=== PATIENT | male | born 1975 | race Two or more races ===

== ENCOUNTER 2022-09-25 09:17 | Observation (INO) ==
--- NOTE | 2022-09-25 09:50 | Emergency Department Note ---
HPI General Chief complaint: Skin/Abscess/Rash Stated complaint: Open stitches Time Seen by Provider: 09/25/22 09:41 Source: patient and family Mode of arrival: wheelchair Limitations: no limitations History of Present Illness HPI Narrative: Narrative: Patient is a 47-year-old male who presents to the emergency department due to concern for open surgical wound. He states that he had surgery performed approximately 3 weeks ago in [place]. He states that it was with a physician and Dr. Newberry and that they were looking to potentially do a kidney transplant, but were unable to. He states that this morning he sneezed, and sutures came out at that time. He noticed something purple coming out of the wound, so p ushed it back in. He states that he decided to come to the emergency department at that point. He does endorse some pain in the belly. He denies any other symptoms at this time. Related Data Home Medications Medication Instructions Recorded Confirmed acetaminophen 500 mg capsule See Rx Instructions PO PRN 11/30/19 09/25/22 ascorbic acid (vitamin C) 1,000 mg 1 g PO QAM 02/27/21 09/25/22 tablet cholecalciferol (vitamin D3) 25 25 mcg PO QDAY 02/27/21 09/25/22 mcg (1,000 unit) capsule multivit,calc,mins-folic 240 1 tab PO QDAY 02/27/21 09/25/22 mcg-vit K1 30 mcg-lycopene 300 mcg tablet (One-A-Day Men's Complete) zinc gluconate 100 mg tablet 100 mg PO ONCE 02/27/21 09/25/22 Allergies Allergy/AdvReac Type Severity Reaction Status Date / Time No Known Drug Allergies Allergy Verified 07/11/22 09:29 Review of Systems ROS ROS Narrative: Narrative: Constitutional: Denies fever or weakness Cardiovascular: Denies chest pain or edema Respiratory: Denies shortness of breath Gastrointestinal: Reports abdominal pain; Denies nausea, vomiting, diarrhea or constipation Musculoskeletal: Denies back pain or myalgia Integumentary: Denies rash or lesions Neurological: Denies headache, weakness or confusion ON LICENSE OF [facility] Narrative Patient History Narrative: Narrative: Medical/Surgical/Family History All Active Problems (Updated 09/27/22 @ 08:00 by Goran Rodríguez MD) Abdominal wound dehiscence (Acute) Postoperative ileus (Acute) Abdominal wall dehiscence (Acute) Refused influenza vaccine (Acute) Close exposure to COVID-19 virus (Acute) History of ankle surgery (Chronic ~04/2007) Gout (Chronic ~11/2015) Sleep apnea (Chronic) Daytime sleepiness (Chronic) Medical History (Updated 09/27/22 @ 08:00 by Goran Rodríguez MD) Daytime sleepiness Gout (~11/2015) Sleep apnea Using CPAP since 2000 Surgical History History of ankle surgery (~04/2007) Family History Mother Arthritis Diabetes Father Arthritis Diabetes Grandmother Cancer Paternal Diabetes Maternal & Paternal Grandfather Heart attack Maternal & Paternal Diabetes Maternal & Paternal Social History Smoking Status: Never smoker Alcohol Intake Frequency: does not drink Substance Use: does not use Exam Narrative Narrative: Narrative: General Limitations: no limitations General appearance: Present alert and in no apparent distress; Absent anxious, appears intoxicated or sleepy Head Head: Present atraumatic and normocephalic Eye Eye: Present EOMI; Absent scleral icterus or nystagmus ENT ENT: Present mucous membranes moist; Absent nasal congestion Neck Neck: Present full ROM and trachea midline Chest Chest: Present normal inspection and symmetric chest wall rise Respiratory Respiratory: Present normal lung sounds bilaterally; Absent respiratory dis tress, rales/crackles, wheezes, stridor or accessory muscle use Cardiovascular Cardiovascular: Present regular rate, normal rhythm and normal heart sounds Adbominal Abdominal: Present soft, tenderness and normal bowel sounds; Absent distention, guarding, rebound or rigidity Extremities Extremities: Present normal inspection and full ROM Back Back: Present normal inspection and full ROM Neurological Neurological: Present alert and oriented X3 Psychiatric Psychiatric: Present normal affect and normal mood Skin Skin: Present warm (WNL), dry and normal color Course Vital Signs Vital signs: Vital Signs Temperature 97.0 F 09/25/22 09:23 Pulse Rate 61 09/25/22 09:23 Respiratory Rate 16 09/25/22 09:23 Blood Pressure 140/120 09/25/22 09:23 Pulse Oximetry (%) 99 09/25/22 09:23 Oxygen Delivery Method Room Air 09/25/22 09:23 Temperature 98.2 F 09/27/22 07:30 Pulse Rate 68 09/27/22 07:30 Respiratory Rate 16 09/27/22 07:30 Blood Pressure 129/89 09/27/22 07:30 Pulse Oximetry (%) 97 09/27/22 07:30 Oxygen Delivery Method Room Air 09/27/22 07:30 Oxygen Flow Rate (L/min) 0 09/25/22 13:12 MDM MDM Narrative Medical decision making narrative: Narrative: Patient is a 47-year-old male who presents to the emergency department due to open abdominal wound. I did examine the wound which appeared to be deep, but did not probe further prior to talking with Dr. Newberry. I spoke to Dr. Newberry and he did recommend that I probe deeper to confirm what patient stated about a "purple thing" protruding from the wound. I did probe deeper and found that the wound did cross through fascia into the abdomen, and was able to see peristalsing intestine. Dr. Newberry did recommend he speak to our surgical team here. I spoke to Dr. Arreola who agreed to see and evaluate patient he spoke to the surgical team who presented to the emergency department and placed Ioban over the wound after cleaning the skin. Dr. Arreola states that he plans to take patient to the OR and to admit patient. Lab Data 09/26/22 05:39 09/26/22 05:39 Labs: Lab Results 09/25/22 09/25/22 09/25/22 Range/Units 10:00 10:00 10:00 WBC 5.1 (4.5-11.0) K/mcL RBC 4.89 (4.63-6.08) M/mcL Hgb 13.4 L (13.7-17.5) g/dL Hct 41.3 (40.1-51.0) % POC Hct (41-55) MCV 84.5 (80.0-100.0) fL MCH 27.4 (26.0-34.0) pg MCHC 32.4 (31.0-36.0) g/dL RDW 14.6 H (11.5-14.5) % Plt Count 234 (140-440) K/mcL MPV 12.0 (8.8-12.5) fL Immature Gran % (Auto) 0.2 (0.0-0.5) % Neut % (Auto) 59.7 (38.0-78.0) % Lymph % (Auto) 27.4 (15.5-49.0) % [place] % (Auto) 9.6 (1.0-12.0) % Eos % (Auto) 2.5 (0.0-7.0) % Baso % (Auto) 0.6 (0.0-2.0) % Lymph # (Auto) 1.40 L (1.50-4.80) K/mcL [place] # (Auto) 0.49 (0.10-0.90) K/mcL Eos # (Auto) 0.13 (0.00-0.70) K/mcL Baso # (Auto) 0.03 (0.00-0.30) K/mcL Immature Gran # 0.01 (0.00-0.05) K/mcl Absolute Neutrophils 3.05 (1.80-8.00) K/mcL PT 13.8 (11.9-14.5) sec INR 1.0 (0.9-1.1) APTT 28.2 (20.0-37.0) sec POC Sodium (133-145) Sodium 140 (133-145) mmol/L POC Potassium (3.3-5.1) Potassium 4.2 (3.3-5.1) mmol/L POC Chloride (96-108) Chloride 104 (96-108) mmol/L Carbon Dioxide 25 (22-30) mmol/L POC Total CO2 (22-30) Anion Gap 11.0 (8.0-16.0) POC BUN (6-20) BUN 14 (6-20) mg/dL Creatinine 1.1 (0.7-1.2) mg/dL POC Creatinine (0.6-1.2) GFR Calculation 79 Glucose 85 (70-105) mg/dL POC Glucose (70-105) Calcium 9.3 (8.6-10.4) mg/dL POC WB Ioniz Calcium (1.16-1.32) Total Bilirubin 0.3 (0.1-1.0) mg/dL AST 26 (<40) U/L ALT 34 (<40) U/L Alkaline Phosphatase 71 (39-117) U/L Total Protein 7.1 (5.9-8.4) gm/dL Albumin 4.2 (3.2-5.2) gm/dL Globulin 2.9 (2.2-3.7) gm/dL Albumin/Globulin Ratio 1.4 (1.0-2.3) Urine Color Urine Appearance (Clear) Urine pH (5.0-9.0) Ur Specific Leonidas (1.000-1.035) Urine Protein (Negative) mg/dL Urine Glucose (UA) (Negative) mg/dL Urine Ketones (Negative) mg/dL Urine Occult Blood (Negative) mg/dL Urine Nitrate (Negative) Urine Bilirubin (Negative) mg/dL Urine Urobilinogen mg/dL Ur Leukocyte Esterase (Negative) /uL Ur Culture Indicated? 09/25/22 09/25/22 Range/Units 10:03 11:00 WBC (4.5-11.0) K/mcL RBC (4.63-6.08) M/mcL Hgb (13.7-17.5) g/dL Hct (40.1-51.0) % POC Hct 42.0 (41-55) MCV (80.0-100.0) fL MCH (26.0-34.0) pg MCHC (31.0-36.0) g/dL RDW (11.5-14.5) % Plt Count (140-440) K/mcL MPV (8.8-12.5) fL Immature Gran % (Auto) (0.0-0.5) % Neut % (Auto) (38.0-78.0) % Lymph % (Auto) (15.5-49.0) % [place] % (Auto) (1.0-12.0) % Eos % (Auto) (0.0-7.0) % Baso % (Auto) (0.0-2.0) % Lymph # (Auto) (1.50-4.80) K/mcL [place] # (Auto) (0.10-0.90) K/mcL Eos # (Auto) (0.00-0.70) K/mcL Baso # (Auto) (0.00-0.30) K/mcL Immature Gran # (0.00-0.05) K/mcl Absolute Neutrophils (1.80-8.00) K/mcL PT (11.9-14.5) sec INR (0.9-1.1) APTT (20.0-37.0) sec POC Sodium 140 (133-145) Sodium (133-145) mmol/L POC Potassium 4.2 (3.3-5.1) Potassium (3.3-5.1) mmol/L POC Chloride 103 (96-108) Chloride (96-108) mmol/L Carbon Dioxide (22-30) mmol/L POC Total CO2 27.0 (22-30) Anion Gap (8.0-16.0) POC BUN 14 (6-20) BUN (6-20) mg/dL Creatinine (0.7-1.2) mg/dL POC Creatinine 1.2 (0.6-1.2) GFR Calculation Glucose (70-105) mg/dL POC Glucose 92 (70-105) Calcium (8.6-10.4) mg/dL POC WB Ioniz Calcium 1.13 L (1.16-1.32) Total Bilirubin (0.1-1.0) mg/dL AST (<40) U/L ALT (<40) U/L Alkaline Phosphatase (39-117) U/L Total Protein (5.9-8.4) gm/dL Albumin (3.2-5.2) gm/dL Globulin (2.2-3.7) gm/dL Albumin/Globulin Ratio (1.0-2.3) Urine Color Straw Urine Appearance Clear (Clear) Urine pH 7.0 (5.0-9.0) Ur Specific Leonidas 1.003 (1.000-1.035) Urine Protein Negative (Negative) mg/dL Urine Glucose (UA) Negative (Negative) mg/dL Urine Ketones Negative (Negative) mg/dL Urine Occult Blood Negative (Negative) mg/dL Urine Nitrate Negative (Negative) Urine Bilirubin Negative (Negative) mg/dL Urine Urobilinogen Negative mg/dL Ur Leukocyte Esterase Negative (Negative) /uL Ur Culture Indicated? No Discharge Plan Patient/Caregiver Discharge Instructions Pt seen by DIGITAL MUSIC INSTRUCTOR/PA only: No Clinical Impression: Abdominal wound dehiscence Patient Disposition: Xfer As Outpt/Obs ([facility]) Discharge Date/Time: 09/25/22 11:09
[2022-09-25 10:06] LABS: POC Calcium, Ionized 1.13 (1.16-1.32); POC Creatinine 1.2 (0.6-1.2); POC Potassium 4.2 (3.3-5.1)
[2022-09-25] MEDS ORDERED: cefTRIAXone 1 GM VIAL IV ONE (10:38)
[2022-09-25] MEDS ORDERED: VANCOMYCIN 1,000 MG in 0.9 % SODIUM CHLORIDE 250 ML IV ONE (10:39)
[2022-09-25] MEDS ORDERED: 0.9 % SODIUM CHLORIDE 250 ML ONE (10:44)
--- NOTE | 2022-09-25 10:59 | General Surg History&Physical ---
HPI History of Present Illness Patient information: Note initiated : 09/25/22 at 10:53 am Service Date, if different from initiated Date: [] Patient: Oj Buckner a 47 y/o M admitted on for Repair Abdominal Dehiscence. Chief Complaint: [] Chief complaint: Abdominal wall dehiscence History of present illness: Mr. Buckner is a 47 year old M who presents to the emergency room with an open abdominal wall incision. Patient states that he was going to be a donor for kidney transplant for his sister. At the time of induction of anesthesia he developed unstable vital signs and could not tolerate having his peritoneal cavity insufflated. They tried reportedly multiple times but his vitals would not stabilize. The procedure was aborted and be wound was closed. This procedure was performed on 02 September 2022. The patient states that he was doing fine until he sneezed earlier this morning and noted that his incision popped open. They were able to see bowel through the open incision. He is seen in the emergency room where he has a limited open incision with visible small bowel but no evidence of incarceration or herniation through the open incision. Patient is counseled for general anesthesia with closure of the fascia with permanent suture. Review of Systems All systems: reviewed and no additional remarkable complaints except as stated PFSH PFSH All Active Problems (Updated 09/25/22 @ 10:58 by Leslie Arreola MD) Abdominal wall dehiscence (Acute) Refused influenza vaccine (Acute) Close exposure to COVID-19 virus (Acute) History of ankle surgery (Chronic ~04/2007) Gout (Chronic ~11/2015) Sleep apnea (Chronic) Daytime sleepiness (Chronic) Medical History (Updated 09/25/22 @ 10:58 by Leslie Arreola MD) Daytime sleepiness Gout (~11/2015) Sleep apnea Using CPAP since 2000 Surgical History History of ankle surgery (~04/2007) Family History Mother Arthritis Diabetes Father Arthritis Diabetes Grandmother Cancer Paternal Diabetes Maternal & Paternal Grandfather Heart attack Maternal & Paternal Diabetes Maternal & Paternal Social History marital status: occupational status: employed occupation: [employer] smoking status: Never smoker alcohol intake frequency: does not drink substance use type: does not use MEDS/ALLERGIES Home Medications and Allergies Home Medications Medication Instructions Recorded Confirmed Type acetaminophen 500 mg capsule See Rx Instructions PO PRN 11/30/19 02/27/21 History ascorbic acid (vitamin C) 1,000 mg 1 g PO Q6H 02/27/21 02/27/21 History tablet cholecalciferol (vitamin D3) 25 25 mcg PO QDAY 02/27/21 02/27/21 History mcg (1,000 unit) capsule multivit,calc,mins-folic 240 1 tab PO QDAY 02/27/21 02/27/21 History mcg-vit K1 30 mcg-lycopene 300 mcg tablet (One-A-Day Men's Complete) zinc gluconate 100 mg tablet 100 mg PO ONCE 02/27/21 02/27/21 History Allergies Allergy/AdvReac Type Severity Reaction Status Date / Time No Known Drug Allergies Allergy Verified 07/11/22 09:29 Physical Examination Vital Signs Vital signs: Temp Pulse Resp BP Pulse Ox O2 Del Method 97.0 F 61 16 140/120 99 Room Air 09/25/22 09:23 09/25/22 09:23 09/25/22 09:23 09/25/22 09:23 09/25/22 09:23 09/25/22 09:23 General physical appearance General physical exam: well developed, well nourished, no distress and no pain Eyes Eye exam: PERRL and normal ocular movement ENT ENT exam: normal mucosa Head Head exam IM: Present atraumatic, normal inspection and normocephalic Neck Neck exam: no masses, no bruits, trachea midline, no lymphadenopathy and no venous distension Cardiovascular Cardiovascular exam IM: Present normal rate and rhythm, RRR, +S1 and +S2; Absent JVD Respiratory Respiratory exam: normal expansion, normal respiratory effort and clear to auscultation Abdomen Abdomen: Present soft, non tender and surgical scars (Open supraumbilical midline incision with exposed small bowel; no evidence of purulence) Integumentary Integumentary: Present no rash, no growths and no abnormal pigmentation Neurologic Neurologic: Present normal coordination and normal sensation Musculoskeletal Musculoskeletal: Present normal gait and normal posture Psychiatric Psychiatric: Present oriented to time, oriented to person, oriented to place, speech is normal and memory intact Results Labs 09/25/22 10:00 09/25/22 10:00 Labs: Abnormal lab results 09/25/22 Range/Units 10:03 POC WB Ioniz Calcium 1.13 L (1.16-1.32) All other labs normal. A/P Assessment and plan (1) Abdominal wall dehiscence: Status: Acute Plan Patient is counseled for closure of the dehiscence primarily with permanent suture. This will be carried out later today Sepsis Sepsis Identified: No Time Spent With Patient Time: Total time spent is greater than 50% in coordination of care (as documented) at patient's floor/unit and/or counseling patient:
[2022-09-25] MEDS ORDERED: ONDANSETRON 4 MG/2 ML VIAL ONE (11:25)
[2022-09-25] MEDS ORDERED: DEXAMETHASONE 10 MG/ML VIAL ONE (11:25)
[2022-09-25] MEDS ORDERED: KETAMINE 50 MG/ML Syringe (ANEST) IV ONE (11:25)
[2022-09-25] MEDS ORDERED: SUGAMMADEX SODIUM 200 MG/2 ML VIAL IV ONE (11:25)
[2022-09-25] MEDS ORDERED: LIDOCAINE HCL/PF 100 MG/5 ML SYRINGE IV ONE (11:25)
[2022-09-25] MEDS ORDERED: PROPOFOL 200 MG/20 ML VIAL IV ONE (11:25)
[2022-09-25] MEDS ORDERED: fentaNYL 100 MCG/2 ML VIAL IV ONE (11:25)
[2022-09-25] MEDS ORDERED: MAGNESIUM SULFATE 2 GM/50 ML BAG IV ONE (11:25)
[2022-09-25] MEDS ORDERED: ROCURONIUM 10 MG/ML ML IV ONE (11:25)
[2022-09-25] MEDS ORDERED: ePHEDrine 50 MG/5 ML SYRINGE (ANEST) IV ONE (11:25)
[2022-09-25 11:34] LABS: Basophils # (Auto) 0.03 K/mcL (0.00-0.30); Basophils % (Auto) 0.6 % (0.0-2.0); Eosinophils # (Auto) 0.13 K/mcL (0.00-0.70); Eosinophils % (Auto) 2.5 % (0.0-7.0); Hematocrit 41.3 % (40.1-51.0); Hemoglobin 13.4 g/dL (13.7-17.5); Lymphocytes % (Auto) 27.4 % (15.5-49.0); Mean Cell Volume 84.5 fL (80.0-100.0); Mean Corpuscular HGB Conc 32.4 g/dL (31.0-36.0); Monocytes # (Auto) 0.49 K/mcL (0.10-0.90); Monocytes % (Auto) 9.6 % (1.0-12.0); Neutrophils % (Auto) 59.7 % (38.0-78.0); Platelet Count 234 K/mcL (140-440); RBC 4.89 M/mcL (4.63-6.08); Red Cell Distribution Width 14.6 % (11.5-14.5); WBC 5.1 K/mcL (4.5-11.0)
--- NOTE | 2022-09-25 11:34 | XRay Report ---
HISTORY: Preop for abdominal surgery FINDINGS: The lungs are clear normally expanded. The heart size, pulmonary vasculature, mediastinum, camryn, pleura and bones are normal. There has been no significant change since the chest CT done on 07/21/22. IMPRESSION: Normal chest. Interpreted and Authenticated by: Toni Madrid 09/25/22
[2022-09-25 11:54] LABS: Partial Thromboplastin Time 28.2 sec (20.0-37.0); Prothrombin Time 13.8 sec (11.9-14.5)
[2022-09-25] MEDS ORDERED: ONDANSETRON 4 MG/2 ML VIAL IV PRN ×2 (11:56→12:36)
[2022-09-25] MEDS ORDERED: BENZOCAINE/MENTHOL 1 LOZENGE PO PRN (11:56)
[2022-09-25] MEDS ORDERED: MEPERIDINE 25 MG/ML VIAL IV PRN (11:56)
[2022-09-25] MEDS ORDERED: diphenhydrAMINE 50 MG/ML VIAL IV PRN (11:56)
[2022-09-25] MEDS ORDERED: ACETAMINOPHEN 1,000 MG/100 ML BAG IV ONE (11:56)
[2022-09-25] MEDS ORDERED: fentaNYL 100 MCG/2 ML VIAL IV PRN (11:56)
[2022-09-25] MEDS ORDERED: PROMETHAZINE 25 MG/ML VIAL IV PRN (11:56)
[2022-09-25] MEDS ORDERED: LACTATED RINGERS 250 ML IV PRN (11:56)
[2022-09-25] MEDS ORDERED: METHOCARBAMOL 1,000 MG/10 ML VIAL IV PRN (11:56)
[2022-09-25] MEDS ORDERED: IPRATROPIUM/ALBUTEROL 3 ML AMPUL.NEB NEB PRN (11:56)
[2022-09-25] MEDS ORDERED: NALOXONE HCL 0.4 MG/ML VIAL IV PRN (11:56)
[2022-09-25 11:57] LABS: ALT/SGPT 34 U/L (<40); AST/SGOT 26 U/L (<40); Albumin 4.2 gm/dL (3.2-5.2); Albumin/Globulin Ratio 1.4 (1.0-2.3); Alkaline Phosphatase 71 U/L (39-117); Bilirubin,Total 0.3 mg/dL (0.1-1.0); Blood Urea Nitrogen 14 mg/dL (6-20); Calcium 9.3 mg/dL (8.6-10.4); Carbon Dioxide 25 mmol/L (22-30); Chloride 104 mmol/L (96-108); Globulin 2.9 gm/dL (2.2-3.7); Glomerular Filtration Rate 79; Glucose 85 mg/dL (70-105)
[2022-09-25] MEDS ORDERED: LACTATED RINGERS 1,000 ML IV SCH (12:00)
--- NOTE | 2022-09-25 12:36 | Brief Operative Note ---
Brief Operative Note Date of procedure: 09/25/22 Pre-op diagnosis: abdominal wound fascial dehiscence Post-op diagnosis: other (abdominal wound fascial dehiscence) Procedure: closure of abdominal wall dehiscence Grafts/Implants: No (fabrizio drain) Anesthesia: GETA Findings: total dehiscence of fascia of midline incision ;10 cm Complications: none Surgeon: Leslie Arreola Estimated blood loss (cc): 20 Specimens Removed/Pathology: none sent Condition: stable Disposition: PACU
[2022-09-25] MEDS ORDERED: VANCOMYCIN PER PHARMACY IV SCH (12:43)
[2022-09-25] MEDS ORDERED: cefTRIAXone 1 GM in DEXTROSE 5% IN WATER 50 ML IV SCH (12:45)
[2022-09-25 13:00] LABS: Appearance,Urine CLEAR (Clear); Bilirubin,Urine Negative (Negative); Color,Urine STRAW; Culture Indicated,Urine No; Glucose,Urine (UA) Negative (Negative); Ketones,Urine Negative (Negative); Leukocyte Esterase,Urine Negative /uL (Negative); Nitrate,Urine Negative (Negative); Protein,Urine Negative (Negative); Specific Gravity,Urine 1.003 (1.000-1.035); Urine Blood Negative (Negative); Urobilinogen,Urine Negative
[2022-09-25] MEDS ORDERED: VANCOMYCIN 500 MG in 0.9 % SODIUM CHLORIDE 100 ML IV ONE (13:00)
[2022-09-25] MEDS: 0.9 % SODIUM CHLORIDE 10 ML SYRINGE IV SCH ×2 (13:37→19:50)
[2022-09-25] MEDS: LACTATED RINGERS 1,000 ML IV SCH ×2 (13:40→22:40)
[2022-09-25] MEDS: HYDROmorphone 1 MG/ML SYRINGE IV PRN ×3 (13:54→18:27)
[2022-09-25] MEDS: ACETAMINOPHEN 1,000 MG/100 ML BAG IV SCH (19:49)
[2022-09-25] MEDS: DOCUSATE SODIUM 100 MG CAPSULE PO SCH (21:27)
[2022-09-25] MEDS: SENNOSIDES 1 TABLET PO SCH (21:27)
[2022-09-25] MEDS: VANCOMYCIN 1,500 MG in 0.9 % SODIUM CHLORIDE 500 ML IV SCH (23:32)
[2022-09-26] MEDS: ACETAMINOPHEN 1,000 MG/100 ML BAG IV SCH ×4 (01:43→19:01)
[2022-09-26] MEDS: HYDROmorphone 1 MG/ML SYRINGE IV PRN ×3 (05:09→23:20)
[2022-09-26] MEDS: 0.9 % SODIUM CHLORIDE 10 ML SYRINGE IV SCH ×4 (06:07→21:26)
[2022-09-26 06:35] LABS: Basophils # (Auto) 0.02 K/mcL (0.00-0.30); Basophils % (Auto) 0.1 % (0.0-2.0); Eosinophils # (Auto) 0 K/mcL (0.00-0.70); Eosinophils % (Auto) 0 % (0.0-7.0); Hematocrit 38.5 % (40.1-51.0); Hemoglobin 12.4 g/dL (13.7-17.5); Lymphocytes # (Auto) 0.81 K/mcL (1.50-4.80); Lymphocytes % (Auto) 5.7 % (15.5-49.0); Mean Corpuscular HGB Conc 32.2 g/dL (31.0-36.0); Mean Platelet Volume 11.9 fL (8.8-12.5); Monocytes # (Auto) 0.69 K/mcL (0.10-0.90); Monocytes % (Auto) 4.8 % (1.0-12.0); Neutrophils % (Auto) 88.9 % (38.0-78.0); Platelet Count 250 K/mcL (140-440); RBC 4.53 M/mcL (4.63-6.08); Red Cell Distribution Width 14.8 % (11.5-14.5); WBC 14.2 K/mcL (4.5-11.0)
[2022-09-26 07:07] LABS: ALT/SGPT 28 U/L (<40); AST/SGOT 20 U/L (<40); Albumin 3.7 gm/dL (3.2-5.2); Albumin/Globulin Ratio 1.4 (1.0-2.3); Alkaline Phosphatase 64 U/L (39-117); Bilirubin,Direct < 0.2 mg/dL (0-0.3); Bilirubin,Total 0.5 mg/dL (0.1-1.0); Blood Urea Nitrogen 15 mg/dL (6-20); Calcium 9.1 mg/dL (8.6-10.4); Carbon Dioxide 23 mmol/L (22-30); Chloride 106 mmol/L (96-108); Globulin 2.6 gm/dL (2.2-3.7); Glomerular Filtration Rate 89; Glucose 127 mg/dL (70-105); Lactate Dehydrogenase 136 U/L (135-225); Phosphorous 3.5 mg/dL (2.5-4.5); Triglycerides 112 mg/dL (<150); Uric Acid 6.8 mg/dL (2.5-8.0)
[2022-09-26] MEDS: cefTRIAXone 1 GM VIAL IV SCH (07:58)
[2022-09-26] MEDS: DOCUSATE SODIUM 100 MG CAPSULE PO SCH ×2 (07:58→21:26)
[2022-09-26] MEDS: VANCOMYCIN 1,500 MG in 0.9 % SODIUM CHLORIDE 500 ML IV SCH ×2 (07:58→21:25)
[2022-09-26] MEDS: LACTATED RINGERS 1,000 ML IV SCH (07:59)
--- NOTE | 2022-09-26 12:08 | General Surgery Progress Note ---
SUBJECTIVE Subjective Patient information: Note initiated : 09/26/22 at 12:04 pm Service Date, if different from initiated Date: [] Patient: Oj Buckner 47 y/o M admitted on 09/25/22 for Repair Abdominal Wound Dehiscence. Chief Complaint: [] Principal diagnosis: Abdominal incisional dehiscence Interval history: Patient feels much better. His pain is controlled. He is passing flatus. He denies nausea. Constitutional Vitals: Vital Signs Temp Pulse Resp BP Pulse Ox O2 Del Method O2 Flow Rate 98.3 F 84 16 123/80 92 Room Air 0 09/26/22 11:52 09/26/22 11:52 09/26/22 11:52 09/26/22 11:52 09/26/22 11:53 09/26/22 11:53 09/25/22 13:12 Period Temp Pulse Resp BP Sys/Anton Pulse Ox O2 Del Method O2 Flow Rate Last 24 Hr 96.8 F-98.8 F 71-95 11-20 111-140/66-103 89-100 CPAP-Room Air 0-5 Intake and Output 09/26/22 09/26/22 09/26/22 03:59 11:59 19:59 Intake Total 1600 2400 Output Total 625 Balance 1600 1775 Weight 246 lb 4.8 oz Intake & Output: Intake & Output 09/26/22 09/26/22 09/26/22 03:59 11:59 19:59 Intake Total 1600 2400 Output Total 625 Balance 1600 1775 Weight 246 lb 4.8 oz Intake: IV 1600 1600 Lactated Ringers 1,000 ml @ 265 633 3164 mls/hr IV .Q10H KEVIN Rx#: [id number] Vancomycin 1,500 mg In Sodium 500 500 Chloride 0.9% 500 ml @ 333.3 mls/hr IV Q12H KEVIN Rx#: [id number] Oral 800 Output: Drainage 25 SHERRY Drain 25 Void Amount 600 Other: Urine Appearance Clear Urine Color Yellow Respiratory Respiratory exam: Present normal respiratory exam and CTAB Cardiovascular Cardiovascular exam: Present normal rate and rhythm, RRR, +S1 and +S2; Absent gallop GI/Abdominal GI/Abdominal exam: Present normal bowel sounds and soft; Absent distended Additional comments: Midline incision looks good without erythema or induration SHERRY with serosanguineous drainage Extremities Exam Extremities exam: Present normal inspection and neurovascular intact Neurological Exam Neurological exam: Present alert and oriented X3; Absent motor sensory deficit Psychiatric Psychiatric exam: Present normal affect and normal mood A/P Assessment and plan (1) Abdominal wall dehiscence: Status: Acute (2) Postoperative ileus: Status: Acute Plan Saline lock IV Check CBC in the morning Probable discharge tomorrow Time Spent With Patient Time: Total time spent is greater than 50% in coordination of care (as documented) at patient's floor/unit and/or counseling patient:
--- NOTE | 2022-09-26 14:46 | EKG ---
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 Measurements Intervals [place] Rate: 59 P: 55 DC: 170 QRS: 60 QRSD: 98 T: 55 QT: 412 QTc: 409 Interpretive Statements Sinus rhythm Electronically Signed On 09-26-2022 14:45:51 PDT by Robert Madrid M.D. /[id number]/[id number]
[2022-09-26] MEDS: SENNOSIDES 1 TABLET PO SCH (21:26)
[2022-09-27] MEDS: ACETAMINOPHEN 1,000 MG/100 ML BAG IV SCH ×3 (01:17→13:16)
[2022-09-27] MEDS: 0.9 % SODIUM CHLORIDE 10 ML SYRINGE IV SCH ×3 (01:18→13:17)
[2022-09-27 08:39] LABS: Basophils # (Auto) 0.04 K/mcL (0.00-0.30); Basophils % (Auto) 0.4 % (0.0-2.0); Eosinophils # (Auto) 0.06 K/mcL (0.00-0.70); Eosinophils % (Auto) 0.6 % (0.0-7.0); Hematocrit 35.9 % (40.1-51.0); Hemoglobin 11.5 g/dL (13.7-17.5); Lymphocytes # (Auto) 1.82 K/mcL (1.50-4.80); Lymphocytes % (Auto) 18.1 % (15.5-49.0); Mean Cell Volume 84.7 fL (80.0-100.0); Mean Platelet Volume 11.6 fL (8.8-12.5); Monocytes # (Auto) 0.75 K/mcL (0.10-0.90); Monocytes % (Auto) 7.5 % (1.0-12.0); Neutrophils % (Auto) 73.1 % (38.0-78.0); Platelet Count 216 K/mcL (140-440); RBC 4.24 M/mcL (4.63-6.08); Red Cell Distribution Width 15.1 % (11.5-14.5)
[2022-09-27] MEDS: cefTRIAXone 1 GM VIAL IV SCH (09:06)
[2022-09-27] MEDS: DOCUSATE SODIUM 100 MG CAPSULE PO SCH (09:06)
[2022-09-27] MEDS: VANCOMYCIN 1,500 MG in 0.9 % SODIUM CHLORIDE 500 ML IV SCH (10:08)
--- NOTE | 2022-09-27 13:05 | Discharge Summary ---
Discharge Provider Provider IMPORTANT FOLLOW-UP INFORMATION FOR PCP: Patient information: Note initiated : 09/27/22 at 1:02 pm Service Date, if different from initiated Date: [] Patient: Oj Buckner 47 y/o M admitted on 09/25/22 for Repair Abdominal Wound Dehiscence. Chief Complaint: [] Date of admission: 09/25/22 13:25 Discharge date: 09/27/22 Primary care physician: Derick Alfaro PA-C Admitting clinician: Leslie Arreola Attending physician on admission: Leslie Arreola Consults: 09/26/22 07:28 Consult to Physician [CONS] Routine Comment: Consulting Provider: Leslie Arreola Reason For Exam: Physician to Consult Attending physician on discharge: Leslie Arreola Discharging clinician: Leslie Arreola COURSE Hospital Course Hospital course: 47-year-old male who presents to the emergency room with dehiscence of a midline abdominal incision with exposed small bowel. The patient had an attempted laparoscopic nephrectomy for donor kidney for his sister on 02 September. The procedure was aborted because of his unstable vital signs. He had closure of the wound and had reportedly done well. He states that about 3 days postprocedure he developed some abdominal pain and swelling but was told that that was normal. He was explored on the day of admission and was found to have total disruption of 11 cm midline incision. There was a single strand of 0 Prolene that was fractured and there were a few strands of 3-0 Monocryl. The subcutaneous area was totally covered with a glistening surface suggesting the bowel had been in the subcutaneous tissue for quite some time and the hernia was developing. There was no evidence of purulence. The area was irrigated and closed primarily with interrupted [id number] sutures of #1 Prolene. The subcutaneous tissue was drain and closed in 2 layers with 0 Monocryl. Patient has done well. He had elevation of white blood count to 14,000 on yesterday but it is now down to 10,000. He has been clinically stable and is ready for discharge home. Discharge diagnosis: Total abdominal fascial dehiscence Reason for admission: Dehiscence of the abdominal incision Procedures: Wound exploration and closure of abdominal wall dehiscence Pertinent studies/significant findings: None Complications: None Time Spent with Patient Time attestation: Total time spent providing and/or coordinating discharge services: Time spent: Less than 30 minutes Physical Examination Vital Signs Vital signs: Temp Pulse Resp BP Pulse Ox O2 Del Method O2 Flow Rate 99.1 F H 74 16 137/86 97 Room Air 0 09/27/22 11:54 09/27/22 11:54 09/27/22 11:54 09/27/22 11:54 09/27/22 11:54 09/27/22 11:54 09/25/22 13:12 General physical appearance General physical exam: well developed, well nourished, no distress and no pain Eyes Eye exam: PERRL and normal ocular movement ENT ENT exam: normal mucosa Head Head exam IM: Present atraumatic, normal inspection and normocephalic Neck Neck exam: no masses, no bruits, trachea midline, no lymphadenopathy and no venous distension Cardiovascular Cardiovascular exam IM: Present normal rate and rhythm, RRR, +S1 and +S2; Absent JVD Respiratory Respiratory exam: normal expansion, normal respiratory effort and clear to auscultation Abdomen Abdomen: Present soft, non tender and surgical scars (Midline incision is healing uneventfully; SHERRY drain with serosanguineous drainage) Integumentary Integumentary: Present no rash, no growths and no abnormal pigmentation Neurologic Neurologic: Present normal coordination and normal sensation Musculoskeletal Musculoskeletal: Present normal gait and normal posture Psychiatric Psychiatric: Present oriented to time, oriented to person, oriented to place, speech is normal and memory intact Discharge Plan Patient/Caregiver Discharge Instructions Activity: increase activity as tolerated Diet: Regular Diet Prescriptions: New tramadol 50 mg tablet 50 mg PO Q6H PRN (Reason: Pain) Qty: 30 0RF levofloxacin [levofloxacin] 750 mg tablet 750 mg PO DAILY Qty: 10 0RF Continued acetaminophen 500 mg capsule See Rx Instructions PO PRN Rx Instructions: PO as needed; One-A-Day Men's Complete 240 mcg-30 mcg- 300 mcg tablet 1 tab PO QDAY cholecalciferol (vitamin D3) 25 mcg (1,000 unit) capsule 25 mcg PO QDAY ascorbic acid (vitamin C) 1,000 mg tablet 1 g PO QAM zinc gluconate 100 mg tablet 100 mg PO ONCE Prescription drug monitoring program results: PDMP not reviewed Follow Up Plan Follow up with: Leslie Arreola MD [Physician] - (Patient to call for appointment 2 weeks ) Derick Alfaro PA-C [Primary Care Provider] - Patient Disposition: Home, Self-Care Prognosis: Good Rehab Potential: Good I certify that the patient requires SNF services: No Overall status at discharge: patient is progressing back to baseline Discharge Orders: Discharge Order (Routine); Ordered 09/27/22 Ordered By: Leslie Arreola Pending Pending Pending: Resuscitation Status Resuscitate (Full Code) Diet Regular Diet Start ThuSep 26 1706 Ceftriaxone Sodium (Ceftriaxone 1 Gm Vial) 1 gm IV Q24H [facility] Last Admin: 09/27/22 09:06 Dose: 1 gm Documented By: Admin: 09/26/22 07:58 Dose: 1 gm Documented By: SHANNAN Docusate Sodium (Docusate Sodium 100 Mg Capsule) 100 mg PO BID [facility] Admin: 09/27/22 09:06 Dose: 100 mg Documented By: Admin: 09/26/22 21:26 Dose: 100 mg Documented By: Admin: 09/26/22 07:58 Dose: 100 mg Documented By: Admin: 09/25/22 21:27 Dose: 100 mg Documented By: DOROTHY Hydromorphone HCl (Hydromorphone 1 Mg/Ml Syringe) 1 mg IV Q2HP PRN; Protocol PRN Reason: Per Pain Protocol Last Admin: 09/26/22 23:20 Dose: 1 mg Documented By: Admin: 09/26/22 13:08 Dose: 1 mg Documented By: MARIA TERESA Co-signed By: KISHORE Admin: 09/26/22 05:09 Dose: 1 mg Documented By: Admin: 09/25/22 18:27 Dose: 1 mg Documented By: Admin: 09/25/22 15:49 Dose: 1 mg Documented By: Admin: 09/25/22 13:54 Dose: 1 mg Documented By: SHANNAN Acetaminophen (Ofirmev) 1,000 mg in 100 mls @ 200 mls/hr IV Q6H [facility] Infusion: 09/27/22 08:08 Dose: 0 mls/hr Documented By: Admin: 09/27/22 07:15 Dose: 200 mls/hr Documented By: Infusion: 09/27/22 02:15 Dose: 0 mls/hr Documented By: Admin: 09/27/22 01:17 Dose: 200 mls/hr Documented By: Infusion: 09/26/22 20:07 Dose: 0 mls/hr Documented By: Admin: 09/26/22 19:01 Dose: 200 mls/hr Documented By: Infusion: 09/26/22 13:43 Dose: 0 mls/hr Documented By: Admin: 09/26/22 13:06 Dose: 200 mls/hr Documented By: MARIA TERESA Co-signed By: KISHORE Infusion: 09/26/22 08:26 Dose: 0 mls/hr Documented By: Admin: 09/26/22 07:57 Dose: 200 mls/hr Documented By: Infusion: 09/26/22 02:13 Dose: 0 mls/hr Documented By: Admin: 09/26/22 01:43 Dose: 200 mls/hr Documented By: Infusion: 09/25/22 20:19 Dose: 0 mls/hr Documented By: Admin: 09/25/22 19:49 Dose: 200 mls/hr Documented By: DOROTHY Vancomycin HCl 1,500 mg/ (Sodium Chloride) 500 mls @ 333.3 mls/hr IV Q12H [facility] Last Infusion: 09/27/22 12:08 Dose: 0 mls/hr Documented By: Admin: 09/27/22 10:08 Dose: 333 mls/hr Documented By: Infusion: 09/26/22 23:19 Dose: 0 mls/hr Documented By: Admin: 09/26/22 21:25 Dose: 333.3 mls/hr Documented By: Infusion: 09/26/22 10:25 Dose: 0 mls/hr Documented By: Admin: 09/26/22 07:58 Dose: 333.3 mls/hr Documented By: Infusion: 09/26/22 01:20 Dose: 0 mls/hr Documented By: Admin: 09/25/22 23:32 Dose: 333.3 mls/hr Documented By: DOROTHY Senna (Sennosides 1 Tablet) 2 tab PO HS [facility] Last Admin: 09/26/22 21:26 Dose: 2 tab Documented By: Admin: 09/25/22 21:27 Dose: 2 tab Documented By: DOROTHY Sodium Chloride (0.9 % Sodium Chloride 10 Ml Syringe) 10 ml IV Q8 [facility] Last Admin: 09/27/22 06:57 Dose: 10 ml Documented By: Admin: 09/27/22 01:18 Dose: 10 ml Documented By: Admin: 09/26/22 21:26 Dose: 10 ml Documented By: Admin: 09/26/22 19:03 Dose: 10 ml Documented By: Admin: 09/26/22 12:22 Dose: Not Given Documented By: Admin: 09/26/22 06:07 Dose: Not Given Documented By: Admin: 09/25/22 19:50 Dose: 10 ml Documented By: Admin: 09/25/22 13:37 Dose: Not Given Documented By: SHANNAN Shift Summary 09/27/22 05:06 Shift Summary by Antonella Teague Patient is alert and oriented x4, has a midline incision and 1 SHERRY drain, was able to ambulate in the hallway once, Dilaudid x1, and scheduled Ofirmev worked well to control patient's pain. No N/V. Voided adequately(URINAL), and slept for the majority of this shift, patient used his CPAP. Initialized on 09/27/22 05:06 - END OF NOTE
--- NOTE | 2022-10-06 09:19 | Operative Note ---
DATE OF OPERATION: 09/25/2022 DATE OF PROCEDURE: 09/25/2022 PREOPERATIVE DIAGNOSIS: Acute abdominal wall fascial dehiscence. POSTOPERATIVE DIAGNOSIS: Acute abdominal wall fascial dehiscence. PROCEDURE: Exploration of the abdominal wall incision with primary closure of abdominal wall dehiscence. DESCRIPTION OF PROCEDURE: Under general anesthesia, the open wound was explored. The only tissue holding the bowel in the hernia sac was subcutaneous fat and skin. The skin was opened proximally and distally. There was a very large cavity, which contained small bowel and omentum, the cavity was re-epithelialized suggesting that it had been present for quite some time. There was no well-formed hernia sac. There was total dehiscence of the fascial defect in the midline. The length of the opening was 10 cm. The bowel was inspected and was not injured in any way. There was no evidence of any hernia or obstruction. Irrigation of the subcutaneous cavity was carried out with antibiotic solution. The fascia was then grasped with Allis clamps, the fascia was then closed primarily using multiple interrupted [id number] sutures of #1 Prolene. Once this was complete, a #10 Chuck drain was placed in the subcutaneous fat. The subcutaneous fascia was then closed in two layers using 2-0 Monocryl. Skin was closed with karolina. The patient tolerated the procedure well. Tegaderm dressing was placed. A Chuck drain was secured with 2-0 nylon. The patient was awakened and transferred to the postanesthetic care unit in satisfactory condition. LCS:delmy Job ID: [id number] Doc ID: [id number] Leslie Arreola M.D.
== END 2022-09-27 15:15 | disposition home or self-care (01) ==
LOC: ED 09:17 → MEDSUR 11:05 → SUR 11:05 → MEDSUR 13:25
PROVIDERS: ADMIT Family Medicine Adult Medicine; ATTEND Family Medicine Adult Medicine